=== PATIENT | male | born 1930 | race Caucasian/White ===

== ENCOUNTER 2016-09-13 07:43 | Day surgery (SDC) | payer MEDICARE ==
[~2016-09-13] VITALS: Ht 185.4 cm; Wt 87.6 kg
[~2016-09-13 07:43] MED LIST: ASPI81 PO; CENTTAB9 PO; FISH1000 PO; LOTREL PO; TOPR100T15 PO; TRIA37.512 PO
[2016-09-13 08:34] VITALS: BP 182/92; PULSE 94; RESP 18; TEMP 98.3; O2SAT 94
[2016-09-13] MEDS ORDERED: ASPI325T PO (08:43)
[2016-09-13] MEDS ORDERED: OCUVTAB4 PO (08:43)
[2016-09-13] MEDS ORDERED: TRIA37.5 PO (08:43)
[2016-09-13] MEDS ORDERED: CELE200C PO (08:43)
[2016-09-13] MEDS ORDERED: MULT1TAB84 PO (08:43)
[2016-09-13] MEDS ORDERED: MISC1CAP2 PO (08:43)
[2016-09-13] MEDS ORDERED: TOPR100T PO (08:43)
[2016-09-13] MEDS ORDERED: LOTR10CA2 PO (08:43)
[2016-09-13] MEDS ORDERED: ceFAZolin 2 GM PREMIX 50 ML IV SCH (09:00)
[2016-09-13] MEDS ORDERED: CHLORHEXIDINE GLUCONATE 2 % 1 PACK (2 CLOTHS) TOP SCH (09:00)
[2016-09-13] MEDS ORDERED: Hold AM Insulin & AM Hypoglycemic medications in diabetic patients XX PRN (09:00)
[2016-09-13] MEDS ORDERED: MUPIROCIN 2% OINT 1 APPLIC/GM SYR NASAL SCH (09:00)
[2016-09-13] MEDS ORDERED: POVIDONE IODINE 5% (ANTISEPSIS KIT) 4 APPLICATIONS EACH NARE SCH (09:00)
[2016-09-13] MEDS ORDERED: LORazepam 1 MG TAB SL SCH (09:00)
[2016-09-13] MEDS ORDERED: NS 1000 ML IV SCH (09:00)
[2016-09-13] MEDS ORDERED: VANCOMYCIN HCL 1000 MG VIAL ONE (09:04)
[2016-09-13 09:05] LABS: AUTOMATED NEUTROPHIL # 6.4 TH/MM3 (1.8-7.7); BASOPHIL # 0.1 TH/MM3 (0-0.2); BASOPHIL % 0.7 % (0.0-2.0); EOSINOPHIL # 0.1 TH/MM3 (0-0.4); EOSINOPHIL % 1.5 % (0.0-4.0); HEMATOCRIT 39.5 % (39.0-51.0); HEMO FLAGS DIFF FINAL; LYMPH % 11.9 % (9.0-44.0); MEAN CELL VOLUME 87.5 FL (80.0-100.0); MEAN CORPUSCULAR HEMOGLOBIN 30.9 PG (27.0-34.0); MEAN CORPUSCULAR HGB CONC 35.3 % (32.0-36.0); MONO % 11.9 % (0.0-8.0); PLATELET COUNT 286 TH/MM3 (150-450); RED BLOOD COUNT 4.52 MIL/MM3 (4.50-5.90); RED CELL DISTRIBUTION WIDTH 12.9 % (11.6-17.2); WHITE BLOOD COUNT 8.7 TH/MM3 (4.0-11.0)
[2016-09-13] MEDS ORDERED: SODIUM CHLOR 0.9% 250 ML INJ 250 ML ONE (09:05)
[2016-09-13] MEDS ORDERED: METOPROLOL TARTRATE 25 MG TAB PO PRN (09:15)
[2016-09-13] MEDS ORDERED: INSULIN HUMAN REGULAR 1,000 UNITS/10 ML VIAL SQ PRN (09:15)
[2016-09-13] MEDS ORDERED: LACTATED RINGER'S 1000 ML IV SCH (09:15)
[2016-09-13] MEDS ORDERED: SODIUM CHLORID 0.9% 500 ML IV SCH (09:15)
[2016-09-13 09:17] LABS: BICARBONATE 30.3 MEQ/L (21.0-32.0)
[2016-09-13 09:20] LABS: PROTHROMBIN TIME - PATIENT 10.8 SEC (9.8-11.6)
[2016-09-13] MEDS ORDERED: VANCOMYCIN HCL 1000 MG ON-CALL/NS 250 ML IV SCH ×2 (10:00)
[2016-09-13] MEDS ORDERED: NS + KCL 40 MEQ INJ 1,000 ML IV SCH (11:00)
[2016-09-13] MEDS ORDERED: VANCOMYCIN 500 MG VIAL ONE (12:39)
[2016-09-13] MEDS ORDERED: LIDOCAINE HCL 2% 50 ML VIAL ONE (12:39)
[2016-09-13] MEDS ORDERED: ACETAMINOPHEN/CODEINE 300 MG/30 MG TAB PO PRN ×2 (13:45)
[2016-09-13] MEDS ORDERED: TYLETAB34 PO (13:45)
[2016-09-13] MEDS ORDERED: CEPH-460 PO (13:45)
[2016-09-13] MEDS ORDERED: ONDANSETRON HCL 4 MG/2 ML VIAL IV PRN (13:45)
[2016-09-13] MEDS ORDERED: SODIUM CHLORIDE 0.9% FLUSH 5 ML FLUSH IVF PRN (13:45)
--- NOTE | 2016-09-13 13:51 | PD.CARD ---
PPM GENERATOR REPLACEMENT PROCEDURE DATE: Sep 13, 2016 PPM GENERATOR REPLACEMENT PROC PROCEDURE PERFORMED Permanent pacemaker removal, permanent pacemaker replacement, pocket revision. Mr. Hogan is a 86 -year-old male with history of HBP, bradycardia, pacemaker end of life admits for pacer generator replacement. The risks, the nature and the benefit of the procedure were clearly stated to him. The risks include pneumothorax, cardiac perforation, stroke and even . The patient understood and agreed to proceed. PROCEDURE After written informed consent was obtained, the patient was brought to the EP lab where was prepped and draped in the sterile fashion. Conscious sedation was initiated using intravenous Versed and introducer intravenous fentanyl. Once sedation was verified, the left infraclavicular area over the generator was anesthetized with 2% Xylocaine. Using a #11 scalpel, a 3 centimeter incision was made over the existing generator. Dissection was then taken down to deep fascial layer using Bovie cautery and blunt dissection. Once exposed, the generator was removed from the pocket. The pocket was expanded. Scar tissue was removed around the leads. Then, the leads were disconnected and tested. At that point, the pocket was copiously irrigated using antibiotic solution. The leads were connected to the new generator and placed into the pocket. The pacemaker was interrogated. He was A-sensing, V-pacing. I did proceed with wound closure. The deep fascial layer was approximated with 2-0 Vicryl suture in a continuous fashion. The subcutaneous layer was approximated with 2-0 Vicryl suture in a continuous fashion. Dermabond adhesive was applied to the wound followed by a sterile pressure dressing. There was no complication. The patient tolerated procedure. Blood loss minimal. EXPLANTED HARDWARE The explanted permanent pacemaker is a [employer]onic. Model #VEDR01 serial number [id number]. For information about the existing leads, please refer to previous dictation. IMPLANTED HARDWARE The implanted permanent pacemaker is a Med[employer]onic model number A2DR01, serial number [id number]. THRESHOLDS The right atrial pacing threshold in bipolar mode was 0.75 volt @ 0.5 milliseconds. Lead impedance 440 ohms and P wave at 1.1 millivolts. The right ventricular pacing threshold in bipolar mode was 1.0 volts at 0.5 milliseconds. Lead impedance 590 ohms. SETTINGS The device is set in a DDD60. Upper limit 120 beats per minute. Hysteresis and mode switch are on. CONCLUSIONS Successful permanent pacemaker removal, permanent pacemaker implantation, pocket revision. COMMENT AND RECOMMENDATIONS The patient will be transferred to the telemetry unit. He will be observed. The patient will be discharged home later on today. Cathryn Baum MD Sep 13, 2016 13:51
[2016-09-13] MEDS ORDERED: MIDAZOLAM HCL 2 MG/2 ML VIAL ONE (13:58)
[2016-09-13] MEDS ORDERED: PROPOFOL 200 MG/20 ML AMP OTHER ONE (16:29)
[2016-09-13] MEDS ORDERED: SODIUM CHLORIDE 0.9% FLUSH 5 ML FLUSH IVF SCH (21:00)
--- NOTE | 2016-09-14 23:07 | EKG ---
Date Performed: 09/13/2016 Time Performed: 08:54:44 PTAGE: 86 years EKG: Atrial fibrillation with PVC(s) Left axis deviation RBBB Inferior and ant/septal ST elevati on - possible early repolarization Lateral T wave changes are nonspecific Abnormal ECG NO PREVIOUS TRACING DOCTOR: Cathryn Baum Interpretating Date/Time 09/14/2016 22:56:24
== END 2016-09-13 15:28 | disposition home or self-care (01) ==
LOC: HDOC 07:43 → HDIC 07:43 → HDOC 15:28
PROVIDERS: ATTEND Internal Medicine Interventional Cardiology
DX: Z45.010 Encounter for checking and testing of cardiac pacemaker pulse generator [battery] (principal); I49.5 Sick sinus syndrome; I45.10 Unspecified right bundle-branch block; I10 Essential (primary) hypertension; R53.83 Other fatigue; Z87.891 Personal history of nicotine dependence
CPT/HCPCS: 33228; 80048; 85025; 85610; 86850; 86900; 86901; 93005; 99156; 99157; C1785; J0690; J2250; J3010; J3370; J3480; J7050